=== PATIENT | male | born 1960 | race Caucasian/White ===

== ENCOUNTER 2018-06-07 10:11 | Day surgery (SDC) | payer MEDICAID ==
[~2018-06-07] VITALS: Ht 165.1 cm; Wt 65.8 kg
[2018-06-07 12:02] VITALS: Ht 165.1 cm; Wt 65.8 kg
[2018-06-07] MEDS ORDERED: LIDOCAINE 4% SOLUTION 50 ML BTL ONE (12:04)
[2018-06-07] MEDS ORDERED: LEVO750T8 PO (12:13)
[2018-06-07] MEDS ORDERED: [UNRECOGNIZED DRUG - CODE] PO (12:13)
[2018-06-07] MEDS ORDERED: VALA500T PO (12:13)
[2018-06-07] MEDS ORDERED: MONT10TA24 PO (12:13)
[2018-06-07 12:15] VITALS: BP 125/75; PULSE 72; RESP 24
[2018-06-07] MEDS ORDERED: MIDAZOLAM 1 MG/ML 2 ML INJ ONE ×3 (13:00)
[2018-06-07] MEDS ORDERED: FENTAnyl 50 MCG/ML VIAL ONE (13:00)
[2018-06-07 13:10] VITALS: BP 109/67; PULSE 69; RESP 18
== END 2018-06-07 15:43 | disposition home or self-care (01) ==
LOC: GIL 10:11
PROVIDERS: ATTEND Internal Medicine Gastroenterology
DX: Z12.11 Encounter for screening for malignant neoplasm of colon (principal); K29.30 Chronic superficial gastritis without bleeding; K57.30 Diverticulosis of large intestine without perforation or abscess without bleeding
CPT/HCPCS: 45378; 88305; 88312; J2250; J3010; Z7610